=== PATIENT | male | born 1980 | race Caucasian/White ===

== ENCOUNTER 2017-09-25 01:23 | Emergency (ER) | payer SELFPAY ==
[~2017-09-25] VITALS: Ht 170.2 cm; Wt 126.7 kg
[~2017-09-25 01:23] MED LIST: FAMO20 PO; IBUP-232 PO
[2017-09-25 01:32] VITALS: BP 178/94; PULSE 85; RESP 16; TEMP 98.8; O2SAT 98
[2017-09-25] MEDS ORDERED: PENI500T PO (02:08)
[2017-09-25] MEDS ORDERED: TRAM50TA PO (02:08)
--- NOTE | 2017-09-25 02:09 | PD ---
HPI Chief Complaint: Oral / Dental Pain or Problem Time Seen by Provider: 02:01 Travel History International Travel<30 days: No Contact w/Intl Traveler<30days: No Traveled to known affect area: No History of Present Illness HPI 36-year-old male presents to the emergency department by private transportation for 3-4 days of dental pain affecting the right upper #4 tooth. No report of injury. No fever. Patient is not diabetic. Patient reportedly has been using [id number] Orajel and ibuprofen without symptom relief. Patient reportedly is taking 800 mg of ibuprofen this evening every 4 hours. Patient has not followed up with dentist. Patient denies other concerns or complaints. PFSH Past Medical History Narrative Medical GERD obesity tobacco use; nursing notes reviewed GERD: Yes Tetanus Vaccination: Unknown Influenza Vaccination: No Past Surgical History Surgical History: No Previous Surgery Social History Alcohol Use: No Tobacco Use: Yes (one pack per day) Substance Use: No Allergies-Medications (Allergen,Severity, Reaction): Coded Allergies: No Known Allergies (Verified Adverse Reaction, Unknown, 09/25/17) Reported Meds & Prescriptions Reported Meds & Active Scripts Active No Active Prescriptions or Reported Medications Review of Systems Except as stated in HPI: all other systems reviewed are Neg Physical Exam Narrative GENERAL: Well-developed well-nourished obese male in no acute distress no respiratory distress SKIN: Warm and dry. HEAD: Normocephalic. EYES: No scleral icterus. No injection or drainage. ENT: Mucous membranes moist airway patent dentition intact patient has reproducible buccal cusp tenderness to percussion gingival tenderness to palpation no fluctuance. Mild gingivitis. NECK: Supple, trachea midline. No JVD or lymphadenopathy. CARDIOVASCULAR: Regular rate and rhythm without murmurs, gallops, or rubs. RESPIRATORY: Breath sounds equal bilaterally. No accessory muscle use. Data Data Last Documented VS Vital Signs Date Time Temp Pulse Resp B/P (MAP) Pulse Ox O2 Delivery O2 Flow Rate FiO2 09/25/17 01:32 98.8 85 16 178/94 (122) 98 Orders Orders Penicillin V Potassium (Veetids) (09/25/17 02:15) Tramadol (Ultram) (09/25/17 02:15) MDM Medical Decision Making Medical Screen Exam Complete: Yes Emergency Medical Condition: Yes Medical Record Reviewed: Yes Differential Diagnosis Dentalgia dental abscess apical abscess dental fracture Narrative Course Patient given Penicillin VK 500 mg by mouth and first dose of pain medication tramadol 50 mg by mouth; patient has buccal cusp tenderness to percussion exacerbating dental pain; patient will need to follow-up with dentist and will be discharged with prescription for tramadol and penicillin has any further evaluation for possible cusp fracture versus possible early apical abscess. Diagnosis Primary Impression: Dentalgia Referrals: Dentist 2 days Patient Instructions: Narcotic given in the ED Additional Instructions: Call dentist on Wednesday to schedule follow-up appointment Complete course of antibiotic as prescribed No ibuprofen//Motrin/Advil/Naprosyn/naproxen/Aleve 24 hours; after 24 May administer ibuprofen 600 mg as often as every 6 hours or maximum 800 mg no more frequently than every 8 hours for pain associated with inflammation or for fever 100.4F or greater May administer acetaminophen/Tylenol per package directions as often as every 4- 6 hours for minor pain or fever 100.4F or greater Return to the emergency department for any concerns or change in condition Med/Other Pt SpecificInfo: Prescription(s) given Scripts Tramadol (Tramadol) 50 Mg Tab 50 MG PO Q6H Y for PAIN, #10 TAB 0 Refills Prov: Birdie Najera MD 09/25/17 Penicillin V Potassium (Penicillin V Potassium) 500 Mg Tab 500 MG PO Q6H for Infection for 10 Days, #40 TAB 0 Refills Prov: Birdie Najera MD 09/25/17 Disposition: 01 DISCHARGE HOME Condition: Stable Birdie Najera MD Sep 25, 2017 02:09
[2017-09-25] MEDS ORDERED: PENICILLIN V POTASSIUM 500 MG TAB PO ONE (02:15)
[2017-09-25] MEDS ORDERED: traMADol HCL 50 MG TAB PO ONE (02:15)
== END 2017-09-25 02:38 | disposition home or self-care (01) ==
LOC: PHED 01:23
DX: K08.89 Other specified disorders of teeth and supporting structures (principal); K21.9 Gastro-esophageal reflux disease without esophagitis; E66.9 Obesity, unspecified; F17.210 Nicotine dependence, cigarettes, uncomplicated
CPT/HCPCS: 99284